=== PATIENT | male | born 1965 ===

== ENCOUNTER 2018-01-16 10:13 | Emergency (ER) | payer OTHER ==
[2018-01-16 10:17] VITALS: TEMP 97.7
[2018-01-16] MEDS ORDERED: Iohexol 240 (50 ml) PO ONE (10:38)
[2018-01-16] MEDS ORDERED: Sodium Chloride 0.9% 1,000 ML IV STA (10:38)
[2018-01-16] MEDS ORDERED: Iohexol 240 (50 ml) ONE (11:07)
--- NOTE | 2018-01-16 11:08 | ED PDOC ---
HPI: General Adult Time Seen by Provider: 01/16/18 10:23 Chief Complaint (Nursing): Male Genitourinary Chief Complaint (Provider): Male Genitourinary History Per: Patient History/Exam Limitations: no limitations Additional Complaint(s): 52 year old male presents to the emergency department with a complaint of rectal pain and frequency urination for 1 week. Describes the pain radiates from the frontal region of the perineal region to the back. Denies nausea, vomiting, diarrhea, shortness of breath, chest pain, abdominal pain, leg or arm pain, dizziness, lightheadedness, and back pain. No testicular pain or bloody stool. PMD: Dr. Rob Bautsita MD Past Medical History Reviewed: Historical Data, Nursing Documentation, Vital Signs Vital Signs: Last Vital Signs Temp 97.7 F 01/16/18 10:13 Pulse 99 H 01/16/18 14:49 Resp 18 01/16/18 14:41 BP 196/102 H 01/16/18 14:49 Pulse Ox 98 01/16/18 14:50 - Medical History PMH: HTN - Surgical History Surgical History: No Surg Hx - Family History Family History: States: Unknown Family Hx - Social History Current smoker - smoking cessation education provided: No Alcohol: None Drugs: Denies - Home Medications Home Medications: Ambulatory Orders Medication Instructions Recorded Ciprofloxacin HCl [Cipro] 500 mg PO BID 7 Days tab 01/16/18 - Allergies Allergies/Adverse Reactions: Allergies Allergy/AdvReac Type Severity Reaction Status Date / Time No Known Allergies Allergy Verified 01/16/18 10:13 Review of Systems ROS Statement: Except As Marked, All Systems Reviewed And Found Negative (As per HPI, otherwise negative) Cardiovascular: Negative for: Chest Pain Respiratory: Negative for: Shortness of Breath Gastrointestinal: Positive for: Rectal Pain. Negative for: Nausea, Vomiting, Abdominal Pain, Diarrhea Genitourinary Male: Positive for: Frequency. Negative for: Other (testicular pain) Musculoskeletal: Negative for: Arm Pain, Back Pain, Leg Pain Neurological: Negative for: Dizziness (lightheaded) Physical Exam - Reviewed Nursing Documentation Reviewed: Yes Vital Signs Reviewed: Yes - Physical Exam Appears: Positive for: No Acute Distress Head Exam: Positive for: NORMAL INSPECTION Skin: Positive for: Normal Color, Warm, Dry Eye Exam: Positive for: EOMI, Normal appearance, PERRL ENT: Positive for: Normal ENT Inspection Neck: Positive for: Normal, Painless ROM Cardiovascular/Chest: Positive for: Regular Rate, Rhythm. Negative for: Murmur Respiratory: Positive for: Normal Breath Sounds. Negative for: Accessory Muscle Use, Respiratory Distress Gastrointestinal/Abdominal: Positive for: Normal Exam, Soft. Negative for: Tenderness Back: Positive for: Normal Inspection. Negative for: L CVA Tenderness, R CVA Tenderness Rectal: Positive for: Normal Exam, Rectal Tone Is: (intact). Negative for: Hemorrhoids, Tenderness (No tenderness, erythema, or ecchymosis of the testicular or perineal region ), Other (No gross erythema or blood noted at rectum) Extremity: Positive for: Normal ROM. Negative for: Pedal Edema Neurologic/Psych: Positive for: Alert, Oriented (x3) - Laboratory Results Result Diagrams: 01/16/18 11:00 01/16/18 11:00 Interpretation Of Abn Labs: 3.2 k, urine rbc - ECG O2 Sat by Pulse Oximetry: 98 (RA) Pulse Ox Interpretation: Normal - CT Scan/US ct Other Rad Studies (CT/US): Read By Radiologist Other Rad Interpretation: umbilical hernia - Progress ED Course And Treament: 1514: Stable. AAOx3. Pain free. Tolerated PO. Fu with pcp. Tx for possible uti. Medical Decision Making Medical Decision Making: Time: 1051 Initial Impression: Rectum pain Initial Plan: --CMP --Urine DIP --CBC w/ diff --Iohexol 50 ml PO --Toradol 15 mg --Sodium Chloride 1L IV --Urine Culture --Urinalysis --Occult stool, blood --Abd Pelvis PO & IV Contrast CT --Reevaluation Time: 1300 --Stool Occult Blood: Negative Time: 1441 --Abd/Pelvis CT FINDINGS: LOWER THORAX: Unremarkable. LIVER: Scattered sub centimeter hepatic hypodensities. No ductal dilatation. GALLBLADDER AND BILE DUCTS: Unremarkable. PANCREAS: Unremarkable. No gross lesion or ductal dilatation. SPLEEN: Unremarkable. ADRENALS: Unremarkable. No mass. KIDNEYS AND URETERS: Subcentimeter right interpolar hypodensity. No hydronephrosis. No solid mass. VASCULATURE: Unremarkable. No aortic aneurysm. BOWEL: Unremarkable. No obstruction. No gross mural thickening. APPENDIX: Normal appendix. PERITONEUM: Fat containing umbilical hernia. No free fluid. No free air. LYMPH NODES: Unremarkable. No enlarged lymph nodes. BLADDER: Unremarkable. REPRODUCTIVE: Unremarkable. BONES: Degenerative changes. No acute fracture. OTHER FINDINGS: None. IMPRESSION: No acute abdominal pelvic pathology. Time:1446 --Catapres 0.1 mg PO --Catapres 0.2 mg PO --Potassium Chloride 40 meq PO Scribe Attestation: Documented by Jackie Abdalla, acting as a scribe for Enzo London MD. Provider Scribe Attestation: All medical record entries made by the Scribe were at my direction and personally dictated by me. I have reviewed the chart and agree that the record accurately reflects my personal performance of the history, physical exam, medical decision making, and the department course for this patient. I have also personally directed, reviewed, and agree with the discharge instructions and disposition. Disposition - Clinical Impression Clinical Impression: Urinary tract infection, Hypokalemia, Perineal pain in male, HTN (hypertension) - Patient ED Disposition Is Patient to be Admitted: No Counseled Patient/Family Regarding: Studies Performed, Diagnosis, Need For Followup, Rx Given - Disposition Referrals: [facility] [Outside] - 01/18/18 Disposition: Routine/Home Disposition Time: 15:18 Condition: STABLE Additional Instructions: Return if not better in 3 days. Prescriptions: Ciprofloxacin HCl [Cipro] 500 mg PO BID 7 Days tab Instructions: Urinary Tract Infection, Adult (DC), Hypokalemia, Acute Abdomen ( Belly Pain), High Blood Pressure (DC) Print Language: ARABIC
[2018-01-16 11:15] LABS: BASO % 0.3 % (0.0-2.0); EOS % 0.1 % (0.0-4.0); HEMOGLOBIN 15.6 g/dL (12.0-18.0); LYMPH # 1.2 K/uL (1.0-4.3); LYMPH % 11.9 % (20.0-40.0); MEAN CELL VOLUME 79.9 fl (80.0-94.0); MEAN CORPUSCULAR HEMOGLOBIN 27.8 pg (27.0-31.0); MEAN CORPUSCULAR HGB CONC 34.8 g/dL (33.0-37.0); MONO # 0.6 K/uL (0.0-0.8); MONO % 6.3 % (0.0-10.0); NEUT # 8.2 K/uL (1.8-7.0); NEUT % 81.4 % (50.0-75.0); RBC 5.6 Mil/uL (4.40-5.90); RED CELL DISTRIBUTION WIDTH 13.3 % (11.5-14.5)
[2018-01-16 11:20] LABS: URINE BACTERIA RARE (<OCC); URINE BILIRUBIN NEGATIVE (NEGATIVE); URINE BLOOD NEGATIVE (NEGATIVE); URINE CLARITY SLIGHTY-CLOUDY (Clear); URINE COLOR YELLOW (YELLOW); URINE GLUCOSE (UA) NEG (Normal); URINE LEUKOCYTE ESTERASE NEG Leu/uL (Negative); URINE PROTEIN 30 mg/dL (NEGATIVE); URINE UROBILINOGEN 0.2-1.0 mg/dL (0.2-1.0)
[2018-01-16] MEDS ORDERED: Iohexol 300 100 ML IJ ONE (11:47)
[2018-01-16] MEDS ORDERED: Sodium Chloride 0.9% 100 ML ONE (11:47)
[2018-01-16 13:10] LABS: BLOOD UREA NITROGEN 10 mg/dl (9-20)
[2018-01-16 13:11] LABS: CALCIUM 9.3 mg/dL (8.4-10.2); GFR AFRICAN-AMERICAN > 60; GFR NON-AFRICAN AMERICAN > 60
[2018-01-16 13:12] LABS: ALT/SGPT 228 U/L (21-72); AST/SGOT 108 U/L (17-59)
[2018-01-16 13:14] LABS: ALB/GLOB RATIO 1.1 (1.0-2.1)
[2018-01-16] MEDS ORDERED: Potassium Chloride 20 mEq ER Tab PO ONE ×2 (14:40→14:49)
[2018-01-16 14:42] VITALS: PULSE 99; RESP 18
--- NOTE | 2018-01-16 14:42 | CT ---
PROCEDURE: CT Abdomen and Pelvis with contrast HISTORY: abd pain COMPARISON: None. TECHNIQUE: Contrast dose: 98 mL Omnipaque 300 Radiation dose: Total exam DLP = 895.8 mGy-cm. This CT exam was performed using one or more of the following dose reduction techniques: Automated exposure control, adjustment of the mA and/or kV according to patient size, and/or use of iterative reconstruction technique. FINDINGS: LOWER THORAX: Unremarkable. LIVER: Scattered sub centimeter hepatic hypodensities. No ductal dilatation. GALLBLADDER AND BILE DUCTS: Unremarkable. PANCREAS: Unremarkable. No gross lesion or ductal dilatation. SPLEEN: Unremarkable. ADRENALS: Unremarkable. No mass. KIDNEYS AND URETERS: Subcentimeter right interpolar hypodensity. No hydronephrosis. No solid mass. VASCULATURE: Unremarkable. No aortic aneurysm. BOWEL: Unremarkable. No obstruction. No gross mural thickening. APPENDIX: Normal appendix. PERITONEUM: Fat containing umbilical hernia. No free fluid. No free air. LYMPH NODES: Unremarkable. No enlarged lymph nodes. BLADDER: Unremarkable. REPRODUCTIVE: Unremarkable. BONES: Degenerative changes. No acute fracture. OTHER FINDINGS: None. IMPRESSION: No acute abdominal pelvic pathology.
[2018-01-16 14:43] VITALS: O2SAT 98
[2018-01-16 15:54] VITALS: BP 155/91
== END 2018-01-16 16:02 | disposition home or self-care (01) ==
LOC: H.ER 10:13
DX: N39.0 Urinary tract infection, site not specified (principal); E87.6 Hypokalemia; R10.2 Pelvic and perineal pain; I10 Essential (primary) hypertension; K62.89 Other specified diseases of anus and rectum
CPT/HCPCS: 74177; 80053; 81003; 85025; 87086; 96374; G0328; J1885; J7040; Q9966; Q9967

== ENCOUNTER 2018-01-24 08:11 | Emergency (ER) | payer OTHER ==
[2018-01-24 08:13] VITALS: BMI 27.4
[2018-01-24 08:15] VITALS: RESP 20; TEMP 98.7
[2018-01-24 08:22] VITALS: O2SAT 98
--- NOTE | 2018-01-24 09:11 | ED PDOC ---
HPI: Male Pain Time Seen by Provider: 01/24/18 08:36 Chief Complaint (Nursing): Male Genitourinary Chief Complaint (Provider): rectal itching History Per: Patient History/Exam Limitations: no limitations Onset/Duration Of Symptoms: Days (2 weeks) Current Symptoms Are (Timing): Still Present Quality Of Discomfort: Other (itching) Associated Symptoms: denies: Diarrhea Additional Complaint(s): 52 year old male presents to the ED complaining of rectal itching onset two weeks ago. Patient visited PMD was told he had hemorrhoid and was prescribed a cream. He states the medication finished but he feels no relief. Reports of hard stool. On Thursday, he had frontal groin pain and was provided antibiotics. Denies diarrhea. PMD: No Family Provider Past Medical History Reviewed: Historical Data, Nursing Documentation, Vital Signs Vital Signs: Last Vital Signs Temp 98.7 F 01/24/18 08:13 Pulse 113 H 01/24/18 08:13 Resp 20 01/24/18 08:13 BP 183/98 H 01/24/18 08:13 Pulse Ox 98 01/24/18 08:20 - Medical History PMH: HTN - Surgical History Surgical History: No Surg Hx - Family History Family History: States: Unknown Family Hx - Social History Current smoker - smoking cessation education provided: No Alcohol: None Drugs: Denies - Home Medications Home Medications: Ambulatory Orders Medication Instructions Recorded Pyrantel Pamoate [Pin-X] 1,000 mg PO ONCE #4 tab.chew 01/24/18 - Allergies Allergies/Adverse Reactions: Allergies Allergy/AdvReac Type Severity Reaction Status Date / Time No Known Allergies Allergy Verified 01/24/18 08:20 Review of Systems ROS Statement: Except As Marked, All Systems Reviewed And Found Negative Gastrointestinal: Negative for: Diarrhea Genitourinary Male: Positive for: Other (rectal itching; hard stool) Physical Exam - Reviewed Nursing Documentation Reviewed: Yes Vital Signs Reviewed: Yes - Physical Exam Appears: Positive for: Non-toxic, No Acute Distress Head Exam: Positive for: ATRAUMATIC, NORMAL INSPECTION, NORMOCEPHALIC Skin: Positive for: Normal Color, Warm, Dry Eye Exam: Positive for: EOMI, Normal appearance, PERRL ENT: Positive for: Normal ENT Inspection Neck: Positive for: Normal, Painless ROM, Supple. Negative for: Decreased ROM Cardiovascular/Chest: Positive for: Regular Rate, Rhythm. Negative for: Murmur Respiratory: Positive for: Normal Breath Sounds. Negative for: Decreased Breath Sounds, Accessory Muscle Use, Respiratory Distress Gastrointestinal/Abdominal: Positive for: Normal Exam, Bowel Sounds, Soft. Negative for: Tenderness, Guarding, Rebound Back: Positive for: Normal Inspection. Negative for: L CVA Tenderness, R CVA Tenderness Rectal: Positive for: Normal Exam, Other (cell efficiency supervisor was RN Yosi). Negative for : Hemorrhoids (extended ), Tenderness (erythematous; lesion) Extremity: Positive for: Normal ROM. Negative for: Tenderness, Pedal Edema, Deformity - ECG O2 Sat by Pulse Oximetry: 98 (RA) Pulse Ox Interpretation: Normal Medical Decision Making Medical Decision Making: Time: 835 Initial Plan: --Reevaluation Scribe Attestation: Documented by Timoteo Dominguez, acting as a scribe for Margi Garcia MD Provider Scribe Attestation: All medical record entries made by the Scribe were at my direction and personally dictated by me. I have reviewed the chart and agree that the record accurately reflects my personal performance of the history, physical exam, medical decision making, and the department course for this patient. I have also personally directed, reviewed, and agree with the discharge instructions and disposition. Disposition - Clinical Impression Clinical Impression: Anal itching - Patient ED Disposition Is Patient to be Admitted: No Doctor Will See Patient In The: Office Counseled Patient/Family Regarding: Diagnosis, Need For Followup, Rx Given - Disposition Referrals: [facility] [Outside] [facility] [Outside] Hussein Cespedes MD [Medical Doctor] - Disposition: Routine/Home Disposition Time: 09:15 Condition: FAIR Prescriptions: Pyrantel Pamoate [Pin-X] 1,000 mg PO ONCE #4 tab.chew Instructions: Anal Pruritus (Anal Itching) Forms: [facility] (Turkish) Print Language: MONGOLIAN - POSrniivas Present On Arrival: None
[2018-01-24 10:04] VITALS: BP 149/90; PULSE 89
== END 2018-01-24 10:05 | disposition home or self-care (01) ==
LOC: H.ER 08:11
DX: L29.0 Pruritus ani (principal); I10 Essential (primary) hypertension

== ENCOUNTER 2018-01-29 09:15 | Emergency (ER) | payer OTHER ==
[2018-01-29 09:37] VITALS: TEMP 98; O2SAT 98
[2018-01-29 09:38] VITALS: BMI 24.5
--- NOTE | 2018-01-29 10:40 | ED PDOC ---
HPI: General Adult Time Seen by Provider: 01/29/18 10:10 Chief Complaint (Nursing): GI Problem History Per: Patient (here because burning and itching in the anorectal area. He was seen by me in the 1-2 weeks. Exam then did not reveal any visible lesion. Patient has not followed through with his PMD (Mohan Bauitsta)) Past Medical History Reviewed: Historical Data Vital Signs: Last Vital Signs Temp 98 F 01/29/18 09:36 Pulse 123 H 01/29/18 09:36 Resp BP 145/90 01/29/18 09:36 Pulse Ox 98 01/29/18 09:36 - Medical History PMH: No Chronic Diseases, HTN - Surgical History Surgical History: No Surg Hx - Family History Family History: States: Unknown Family Hx - Living Arrangements Living Arrangements: With Family - Home Medications Home Medications: Ambulatory Orders Medication Instructions Recorded Pyrantel Pamoate [Pin-X] 1,000 mg PO ONCE #4 tab.chew 01/24/18 - Allergies Allergies/Adverse Reactions: Allergies Allergy/AdvReac Type Severity Reaction Status Date / Time No Known Allergies Allergy Verified 01/24/18 08:20 Review of Systems ROS Statement: Except As Marked, All Systems Reviewed And Found Negative Constitutional: Negative for: Fever Gastrointestinal: Negative for: Nausea, Vomiting, Abdominal Pain, Rectal Pain ( burning and itching) Physical Exam - Reviewed Nursing Documentation Reviewed: Yes Vital Signs Reviewed: Yes - Physical Exam Appears: Positive for: Well Skin: Positive for: Normal Color Eye Exam: Positive for: Normal appearance ENT: Positive for: Normal ENT Inspection Neck: Positive for: Normal Cardiovascular/Chest: Positive for: Regular Rate, Rhythm Respiratory: Positive for: Normal Breath Sounds - ECG O2 Sat by Pulse Oximetry: 98 Disposition - Clinical Impression Clinical Impression: Anal itching - Patient ED Disposition Is Patient to be Admitted: No Doctor Will See Patient In The: Office Counseled Patient/Family Regarding: Diagnosis, Need For Followup - Disposition Referrals: [facility] [Outside] Disposition: Routine/Home Disposition Time: 10:25 Condition: STABLE Instructions: Anal Pruritus (Anal Itching) - POA Present On Arrival: None
[2018-01-29 11:06] VITALS: BP 132/79; PULSE 84; RESP 16
== END 2018-01-29 10:45 | disposition home or self-care (01) ==
LOC: H.ER 09:15
DX: L29.0 Pruritus ani (principal)